=== PATIENT | female | born 1995 | race Hispanic/Latino ===

== ENCOUNTER → 2017-01-06 | Outpatient (CLI) | payer BC | END | disposition home or self-care (01) | LOC: CDC 12:37 | DX: E66.01 Morbid (severe) obesity due to excess calories (principal) | CPT/HCPCS: 93000 ==

== ENCOUNTER 2017-02-21 21:23 | Inpatient (IN) | payer BC ==
[~2017-02-21] VITALS: Ht 157.5 cm; Wt 113.0 kg
[2017-02-22] MEDS ORDERED: TYLENOL EXTRA500 MG PO (06:08)
[2017-02-22 06:09] VITALS: BP 125/82
[2017-02-22 10:50] VITALS: BP 128/73
[2017-02-22 12:45] LABS: POINT-OF-CARE METER ID UU14314084
[2017-02-22 19:47] VITALS: BP 122/64
[2017-02-23 00:01] LABS: POINT-OF-CARE METER ID UU14162508
[2017-02-23 00:06] VITALS: BP 130/74
[2017-02-23 03:33] VITALS: BP 113/58
[2017-02-23 05:37] LABS: POINT-OF-CARE METER ID UU14162508
[2017-02-23 06:43] LABS: HEMATOCRIT 40.2 % (36.0-46.0); MCH 28.7 PG (29.0-34.0); MCHC 33.1 G/DL (30.0-36.0); MCV 86.6 FL (83-99); PLATELET COUNT 315 K/uL (156-360); RBC DIS.WIDTH-CV 12.7 % (11.8-14.6); RBC DIS.WIDTH-SD 40.2 % (39-53); RED BLOOD COUNT 4.64 M/uL (3.80-5.20); WHITE BLOOD COUNT 12.5 K/uL (4.1-10.2)
[2017-02-23 07:15] LABS: ANION GAP 10 MEQ/L (2-14); CHLORIDE 102 MEQ/L (99-109); GFR ESTIMATE (CALCULATED) > 59 mL/min/; GLUCOSE 90 mg/dL (70-99); MAGNESIUM 1.8 mg/dl (1.3-2.7); POTASSIUM 3.9 MEQ/L (3.7-5.4); SAMPLE HEMOLYSIS CHECK 0; SAMPLE ICTERIC CHECK 0; SAMPLE LIPEMIA CHECK 0; SODIUM 138 MEQ/L (136-147); UREA NITROGEN (BUN) 9 mg/dL (9-23)
[2017-02-23 07:22] VITALS: BP 112/58
== END 2017-02-23 11:00 | disposition home or self-care (01) | DRG 621 ==
LOC: ENRESERV 21:23 → 2SOUTH 02-22 05:51 → ENRESERV 02-22 09:04 → 2EASTP 02-22 10:47 → 2SOUTH 02-22 10:55 → 2EASTP 02-23 11:00
PROVIDERS: Surgery
PROC: 0DB64Z3 Excision of Stomach, Percutaneous Endoscopic Approach, Vertical (ICD-10-PCS; principal; 2017-02-22)
DX: E66.01 Morbid (severe) obesity due to excess calories (principal); E55.9 Vitamin D deficiency, unspecified; J45.909 Unspecified asthma, uncomplicated; R73.03 Prediabetes; Z82.0 Family history of epilepsy and other diseases of the nervous system; Z82.49 Family history of ischemic heart disease and other diseases of the circulatory system; Z83.3 Family history of diabetes mellitus
CPT/HCPCS: 80048; 82948; 83735; 84100; 85027; C9113; J0131; J0330; J0690; J1100; J1170; J1644; J1650; J1815; J2250; J2270; J2405; J2710; J2765; J3010; J3480; J7120; S0020